=== PATIENT | female | born 1995 | race Caucasian/White ===

== ENCOUNTER 2017-11-02 08:14 | Emergency (ER) | payer BC ==
[2017-11-02 08:22] VITALS: BP 96/54; PULSE 74; TEMP 98; BMI 20.1
[2017-11-02] MEDS ORDERED: IBUPROFEN 400 MG TABLET (FP) PO ONE (08:48)
[2017-11-02] MEDS ORDERED: ACETAMINOPHEN 325 MG TABLET (FP) ONE (08:52)
--- NOTE | 2017-11-02 08:56 | PDOC ---
History of Present Illness - General Chief Complaint: Head/Neck problem Stated Complaint: HEAD INJURY Time Seen by Provider: 11/02/17 08:25 History Source: Patient Exam Limitations: Clinical Condition - History of Present Illness Initial Comments: 11/02/17 08:50 Patient with no significant past medical history presenting with laceration to the back of the head after she slipped on clothes on the floor and hitting head to the bedpost. Chin reporting headache from head contusion. Denies loss of consciousness, dizziness, nausea, vomiting, spinning sensation. Timing/Duration: 1-3 hours Severity: moderate Modifying Factors: improves with: other (nothing) Associated Symptoms: reports: headaches. denies: nausea/vomiting, syncope Past History - Past Medical History Allergies/Adverse Reactions: Allergies Allergy/AdvReac Type Severity Reaction Status Date / Time amoxicillin Allergy Verified 11/02/17 08:19 Home Medications: Ambulatory Orders Mupirocin Ointment [Bactroban 2% Ointment -] 1 applic TP BID PRN #1 tube Sulfamethoxazole/Trimethoprim [Bactrim Ds -] 1 tab PO BID #14 tablet 11/02/17 - Suicide/Smoking/Psychosocial Hx Smoking History: Never smoked Hx Alcohol Use: No Drug/Substance Use Hx: No Review of Systems - Review of Systems Able to Perform ROS?: Yes Is the patient limited Trin[place] proficient: No Constitutional: No: Chills, Diaphoresis, Fever, Loss of Appetite, Malaise, Night Sweats, Weakness, Weight Stable, Unintentional Wgt. Loss, Unexplained wgt Loss, Other HEENTM: Yes: See HPI. No: Eye Pain, Blurred Vision, Tearing, Recent change in vision, Double Vision, Cataracts, Ear Pain, Ocular Prothesis, Ear Discharge, Nose Pain, Nose Congestion, Tinnitus, Nose Bleeding, Hearing Loss, Throat Pain, Throat Swelling, Mouth Pain, Dental Problems, Difficulty Swallowing, Mouth Swelling, Other Respiratory: No: Cough, Orthopnea, Shortness of Breath, SOB with Exertion, SOB at Rest, Stridor, Wheezing, Productive cough, Hemoptysis, Other Cardiac (ROS): No: Chest Pain, Edema, Irregular Heart Rate, Lightheadedness, Palpitations, Syncope, Chest Tightness, Other ABD/GI: No: Abdominal Distended, Abd. Pain w/ defecation, Blood Streaked Bowels , Constipated, Diarrhea, Difficulty Swallowing, Nausea, Poor Appetite, Poor Fluid Intake, Rectal Bleeding, Vomiting, Indigestion, Abdominal cramping, Tarry Stools, Other Musculoskeletal: Yes: Muscle Pain (back of head). No: Muscle Weakness Integumentary: Yes: See HPI Neurological: Yes: See HPI, Headache (mild). No: Numbness, Paresthesia, Pre- Existing Deficit, Seizure, Tingling, Tremors, Weakness, Unsteady Gait, Ataxia, Dizziness, Other All Other Systems: Reviewed and Negative *Physical Exam - Vital Signs Last Vital Signs Temp Pulse Resp BP Pulse Ox 98 F 74 16 96/54 99 11/02/17 08:20 11/02/17 08:20 11/02/17 08:20 11/02/17 08:20 11/02/17 08:20 - Physical Exam Comments: 11/02/17 08:55 GENERAL: Well developed, well nourished. Awake and alert. No acute distress. HEENT: Normocephalic, atraumatic. PERRLA, EOMI. No conjunctival pallor. Sclera are non- icteric. Moist mucous membranes. Oropharynx is clear. NECK: Supple. Full ROM. No JVD. Carotid pulses 2+ and symmetric, without bruits. No thyromegaly. No lymphadenopathy. CARDIOVASCULAR: Regular rate and rhythm. No murmurs, rubs, or gallops. Distal pulses are 2+ and symmetric. PULMONARY: No evidence of respiratory distress. Lungs clear to auscultation bilaterally. No wheezing, rales or rhonchi. ABDOMINAL: Soft. Non-tender. Non-distended. No rebound or guarding. No organomegaly. Normoactive bowel sounds. MUSCULOSKELETAL Normal range of motion at all joints. No bony deformities or tenderness. No CVA tenderness. EXTREMITIES: No cyanosis. No clubbing. No edema. No calf tenderness. SKIN: Small 1 cm superficial laceration to the back of her head with minimal bleeding. NEUROLOGICAL: Alert, awake, appropriate. Cranial nerves 2-12 intact. No deficits to light touch and temperature in face, upper extremities and lower extremities. No motor deficits in the in face, upper extremities and lower extremities. Normoreflexic in the upper and lower extremities. Normal speech. Toes are down- going bilaterally. Gait is normal without ataxia. PSYCHIATRIC: Cooperative. Good eye contact. Appropriate mood and affect. General Appearance: Yes: Nourished, Appropriately Dressed. No: Apparent Distress Procedures - Laceration/Wound Repair Posterior Dorsal Head Wound's Depth, Shape: superficial Irrigated w/ Saline: No Betadine Prep: Yes Wound Repaired With: Stephanie Sterile Dressing Applied: Yes Splint Applied: No Progress: 11/02/17 10:19 1.5 cm wound back of head cleaned with Betadine and closed with 3 stephanie with approximation and patient tolerated procedure well. ED Treatment Course - RADIOLOGY Radiology Studies Ordered: Category Date Time Status HEAD CT WITHOUT CONTRAST [CT] Stat CT Scan 11/02/17 08:48 Ordered Medical Decision Making - Medical Decision Making 11/02/17 08:56 Patient was in no significant past medical history presenting with laceration to the back of her head status post fall. No evidence of neuro deficits on exam. Patient alert and oriented 3. Wound care done and CT of the head ordered to rule out internal bleeding. Tylenol 975 mg for headache. 11/02/17 10:[address] within normal limits evidence of acute intracranial hemorrhage. Patient stable for home discharge with follow-up in 5 days for stable removal *DC/Admit/Observation/Transfer Diagnosis at time of Disposition: Laceration of head Qualifiers: Encounter type: initial encounter Location of open wound of head: scalp Foreign body presence: without foreign body Qualified Code(s): S01.01XA - Laceration without foreign body of scalp, initial encounter - Discharge Dispostion Disposition: HOME Condition at time of disposition: Stable Decision to Admit order: No - Prescriptions Prescriptions: Mupirocin Ointment [Bactroban 2% Ointment -] 1 applic TP BID PRN #1 tube PRN Reason: wound Sulfamethoxazole/Trimethoprim [Bactrim Ds -] 1 tab PO BID #14 tablet - Referrals - Patient Instructions Printed Discharge Instructions: DI for Closed Head Injury Additional Instructions: back to the ER if worsening headache nausea vomiting dizziness. Follow up with her primary care in 5 days for staple removal - Post Discharge Activity
[2017-11-02] MEDS ORDERED: ACETAMINOPHEN 325 MG TABLET (FP) PO ONE ×2 (08:59)
== END 2017-11-02 10:29 | disposition home or self-care (01) ==
LOC: JERFT 08:14
PROC: 0HQ0XZZ Repair Scalp Skin, External Approach (ICD-10-PCS; principal; 2017-11-02)
DX: S01.01XA Laceration without foreign body of scalp, initial encounter (principal); S00.03XA Contusion of scalp, initial encounter; W01.190A Fall on same level from slipping, tripping and stumbling with subsequent striking against furniture, initial encounter; Y93.89 Activity, other specified; Y92.092 Bedroom in other non-institutional residence as the place of occurrence of the external cause; Y99.8 Other external cause status
CPT/HCPCS: 70450-TC; 84703; 99281-25